=== PATIENT | female | born 1995 | race Caucasian/White ===

== ENCOUNTER 2018-08-21 19:35 | Emergency (ER) | payer SELFPAY ==
[~2018-08-21] VITALS: Ht 154.9 cm; Wt 55.0 kg
[2018-08-21] MEDS ORDERED: BACTRIM DS1 TAB PO (20:52)
[2018-08-21 20:57] VITALS: BP 119/77
== END 2018-08-21 20:57 | disposition home or self-care (01) | DRG 603 ==
LOC: ED 19:35
DX: L03.115 Cellulitis of right lower limb (principal)